=== PATIENT | female | born 1985 | race Caucasian/White ===

== ENCOUNTER 2023-11-19 17:50 | Outpatient (CLI) | payer SELFPAY | END 2023-11-19 23:59 | disposition short-term general hospital (02) | LOC: EMS 17:50 | DX: T71.162A Asphyxiation due to hanging, intentional self-harm, initial encounter (principal); R09.89 Other specified symptoms and signs involving the circulatory and respiratory systems; K92.0 Hematemesis | CPT/HCPCS: A0425; A0429 ==